=== PATIENT | female | born 1990 | race Hispanic/Latino ===

== ENCOUNTER 2023-08-09 10:22 | Observation (INO) | payer MEDICAID, SELFPAY ==
[~2023-08-09] VITALS: Ht 149.9 cm; Wt 70.2 kg
[2023-08-09] VITALS (14 sets, daily range): BP systolic 90–111; BP diastolic 40–72; TEMP 97.1–98.8; O2SAT 98–100
[2023-08-09] MEDS: FERROUS SULFATE 325MG TAB PO SCH ×2 (09:00→20:45)
[2023-08-09 11:19] LABS: BASO % 0.6 % (0.0-1.0); EOS % 0.3 % (0.0-3.0); LYMPH # 1.7 10^3/uL (1.5-5.0); LYMPH % 51.1 % (24.0-44.0); MEAN CORPUSCULAR HEMOGLOBIN 20.3 pg (27.0-33.0); MEAN CORPUSCULAR HGB CONC 28.7 g/dl (32.0-36.5); MEAN CORPUSCULAR VOLUME 70.7 fl (80.0-96.0); MONO # 0.2 10^3/uL (0.0-0.8); MONO % 6.7 % (2.0-8.0); NEUTROPHILS # 1.4 10^3/uL (1.5-8.5); NEUTROPHILS % 41.3 % (36.0-66.0); PLATELET COUNT, AUTOMATED 180 10^3/uL (150-450); RED BLOOD COUNT 2.56 10^6/uL (4.00-5.40); WHITE BLOOD COUNT 3.3 10^3/uL (4.0-10.0)
[2023-08-09] MEDS ORDERED: NS 1,000 ML IV ONE (11:25)
[2023-08-09 11:28] LABS: HEMATOCRIT 18.1 % (36.0-47.0); HEMOGLOBIN 5.2 g/dl (12.0-15.5)
[2023-08-09 11:37] LABS: INR 1.13; PROTHROMBIN TIME 14.1 SECONDS (12.5-14.5)
[2023-08-09 11:38] LABS: PARTIAL THROMBOPLASTIN TIME 29.8 SECONDS (24.8-34.2)
[2023-08-09 11:41] LABS: HCG, SERUM QUALITATIVE NEGATIVE (NEGATIVE)
[2023-08-09 11:43] LABS: ALBUMIN 3.6 G/DL (3.2-5.2); ALKALINE PHOSPHATASE 62 U/L (46-116); ALT/SGPT 20 U/L (7.0-40); AST/SGOT 15 U/L (<34); BILIRUBIN,DIRECT 0.1 MG/DL (<0.4); BILIRUBIN,TOTAL 0.5 MG/DL (0.3-1.2); BLOOD UREA NITROGEN 11 MG/DL (9-23); CALCIUM LEVEL 7.7 MG/DL (8.5-10.1); CARBON DIOXIDE LEVEL 25 MMOL/L (20-31); CHLORIDE LEVEL 110 MMOL/L (98-107); CREATININE FOR GFR 0.56 MG/DL (0.55-1.30); GLOMERULAR FILTRATION RATE > 60.0 (>60); GLUCOSE, FASTING 95 MG/DL (60-100); POTASSIUM SERUM 3.7 MMOL/L (3.5-5.1); SODIUM LEVEL 140 MMOL/L (136-145); TOTAL PROTEIN 6.5 G/DL (5.7-8.2)
[2023-08-09] MEDS ORDERED: MED REC IN PROGRESS XX SCH (11:50)
[2023-08-09] MEDS ORDERED: diphenhydrAMINE 50MG CAP PO ONE (12:25)
[2023-08-09] MEDS ORDERED: ACETAMINOPHEN 500 MG TAB PO ONE (12:25)
[2023-08-09] MEDS ORDERED: medroxyPROGESTERone 5MG TABLET PO ONE (12:25)
[2023-08-09] MEDS ORDERED: ONDANSETRON 4MG 2ML VIAL IV PRN (12:30)
[2023-08-09] MEDS ORDERED: ACETAMINOPHEN TAB 650MG DOSE (2X325MG) PO PRN (12:30)
[2023-08-09] MEDS ORDERED: MIRA3350 PO (12:32)
[2023-08-09] MEDS ORDERED: PROV10TA PO ×2 (12:32→13:27)
[2023-08-09] MEDS ORDERED: VITA500C24 PO (12:32)
[2023-08-09] MEDS ORDERED: SENO8.6T10 PO (12:32)
[2023-08-09] MEDS ORDERED: FERR325T3 PO (12:32)
[2023-08-09] MEDS ORDERED: MIRALAX *UNIT DOSE* 17GM PACKET PO PRN (12:35)
[2023-08-09] MEDS ORDERED: SENOKOT S TAB PO PRN (12:35)
[2023-08-09 23:49] LABS: HEMATOCRIT 31.9 % (36.0-47.0)
[2023-08-09 23:54] LABS: HEMOGLOBIN 10.3 g/dl (12.0-15.5)
[2023-08-10 06:00] VITALS: BP 105/61; TEMP 98.1; O2SAT 99
[2023-08-10 06:23] LABS: HEMATOCRIT 32.7 % (36.0-47.0); HEMOGLOBIN 10.6 g/dl (12.0-15.5)
[2023-08-10] MEDS ORDERED: NS 1,000 ML IV ONE (07:10)
[2023-08-10] MEDS ORDERED: MIDODRINE 5 MG TAB PO ONE (07:10)
[2023-08-10] MEDS ORDERED: ASCORBIC ACID 500 MG TAB PO SCH (09:00)
[2023-08-10] MEDS ORDERED: medroxyPROGESTERone 5MG TABLET PO SCH (09:00)
[2023-08-10] MEDS: FERROUS SULFATE 325MG TAB PO SCH (09:02)
[2023-08-10 10:29] VITALS: BP 108/60
== END 2023-08-10 11:10 | disposition home or self-care (01) ==
LOC: M ED 10:22 → M ED INP 10:23 → M MS5PR 15:25
PROVIDERS: ADMIT General Practice; ATTEND General Practice
DX: N93.9 Abnormal uterine and vaginal bleeding, unspecified (principal); D50.0 Iron deficiency anemia secondary to blood loss (chronic); D72.819 Decreased white blood cell count, unspecified; Z59.7 Insufficient social insurance and welfare support; I95.9 Hypotension, unspecified; Z79.899 Other long term (current) drug therapy
CPT/HCPCS: 36415; 36430; 76830; 76856; 80048; 80076; 80503; 82728; 83020; 83550; 84703; 85014; 85018; 85025; 85046; 85610; 85730; 86850; 86920; 87486; 87581; 87633; 87798; 93005; 93976; 96374; 96376; 99285; P9016

== ENCOUNTER → 2024-08-26 | Outpatient (CLI) | payer OTHER, SELFPAY ==
[~2024-08-26] MED LIST: FERR325T3 PO; MIRA3350 PO; PROV10TA PO; SENO8.6T10 PO; VITA500C24 PO
== END ==
LOC: M WHC 08:31
PROVIDERS: ATTEND Physician Assistant Medical
DX: N63.12 Unspecified lump in the right breast, upper inner quadrant (principal)
CPT/HCPCS: 76642; 77066; G0279